=== PATIENT | male | born 1960 | race Two or more races ===

== ENCOUNTER 2023-10-01 19:46 | Observation (INO) | payer OTHER ==
[2023-10-01] MEDS ORDERED: ONDANSETRON 4 MG/2 ML VIAL ONE (20:46)
[2023-10-01 20:57] LABS: HEMATOCRIT 43.6 % (35.4-49); HEMOGLOBIN 14.5 G/dL (11.7-16.9); MCH 28.5 pg (25.7-33.7); MCHC 33.2 g/dl (32.0-35.9); MEAN CELL VOLUME 85.9 fl (80-96); MEAN PLT VOLUME 8.3 fl (7.5-11.1); PLATELET COUNT 185.1 10^3/uL (134-434); RBC 5.08 10^6/uL (4.00-5.60); WHITE BLOOD COUNT 10.1 10^3/uL (4.0-10.8)
[2023-10-01 21:03] LABS: INR 0.97 (0.83-1.09); PROTHROMBIN TIME (PATIENT) 11.2 SEC (9.7-13.0)
[2023-10-01] MEDS: SODIUM CHLORIDE 0.9% 500 ML INFUS.BAG IV ONE (21:04)
[2023-10-01] MEDS: ONDANSETRON 4 MG/2 ML VIAL IVPUSH ONE (21:04)
[2023-10-01 21:06] LABS: ACTIVATED PTT 28.5 SECONDS (25.2-36.5)
[2023-10-01 21:14] LABS: ALBUMIN 4.4 g/dl (3.4-5.0); ALK PHOS 112 U/L (45-117); ANION GAP 7 mmol/L (4-13); BILIRUBIN,TOTAL 0.5 mg/dl (0.2-1); CALCIUM 9.3 mg/dl (8.5-10.1); CHLORIDE 102 mmol/L (98-107); CO2 28 mmol/L (21-32); GLUCOSE,RANDOM 200 mg/dl (74-106); SGOT/AST 16 U/L (15-37); SGPT/ALT 25 U/L (7-52); SODIUM 137 mmol/L (136-145); TOT PROT 7.2 g/dl (6.4-8.2)
[2023-10-01 21:17] LABS: PLATELET ESTIMATE ADEQUATE
[2023-10-01 21:44] LABS: VENOUS BASE EXCESS 2.5 mmol/L (-2-2); VENOUS O2 SATURATION 41.5 % (70-80); VENOUS PCO2 60.7 mmHg (38-52); VENOUS PH 7.323 (7.310-7.410)
[2023-10-01 21:55] LABS: N-TERMINAL BNP 15.7 pg/ml (5-125)
[2023-10-01] MEDS ORDERED: ASPIRIN 325 MG TABLET ONE ×2 (22:42→22:47)
[2023-10-01] MEDS: ASPIRIN 325 MG TABLET PO ONE (22:48)
[2023-10-01] MEDS ORDERED: DOCUSATE SODIUM 100 MG CAPSULE (FP) PO PRN (23:24)
[2023-10-01] MEDS ORDERED: ACETAMINOPHEN 1000 MG/100 ML BAG IVPB PRN (23:28)
[2023-10-01] MEDS: ONDANSETRON 4 MG/2 ML VIAL IVPUSH PRN (23:46)
[2023-10-02] MEDS: DEXTROSE 5%-LACTATED RINGERS 1,000 ML IV SCH (01:20)
[2023-10-02] MEDS: DEXTROSE 5%-NORMAL SALINE 1,000 ML IV SCH (01:21)
[2023-10-02] MEDS ORDERED: ACETAMINOPHEN INJECTION 100 ML IVPB ONE (02:01)
[2023-10-02] MEDS: ACETAMINOPHEN 1000 MG/100 ML BAG IVPB ONE (02:02)
[2023-10-02 04:58] VITALS: BMI 29.5
[2023-10-02 09:08] LABS: CALCIUM 8.7 mg/dl (8.5-10.1); CREATININE 0.9 mg/dl (0.6-1.3); MAGNESIUM 1.8 mg/dL (1.8-2.4); PHOSPHOROUS 3.8 (2.5-4.9); POTASSIUM 3.7 mmol/L (3.5-5.1)
[2023-10-02 09:40] LABS: BASO % 0.5 % (0-2.0); EOS % 1.7 % (0-4.5); HEMATOCRIT 36.8 % (35.4-49); HEMOGLOBIN 12.5 GM/dL (11.7-16.9); LYMPH % 23.1 % (8-40); MCH 28.9 pg (25.7-33.7); MEAN CELL VOLUME 85.1 fl (80-96); MEAN PLT VOLUME 8.3 fl (7.5-11.1); MONO % 6.7 % (3.8-10.2); PLATELET COUNT 196 10^3/uL (134-434); RBC 4.33 M/mm3 (4.00-5.60); WHITE BLOOD COUNT 10.4 K/mm3 (4.0-10.0)
[2023-10-02] MEDS: ATORVASTATIN CA 40 MG TABLET (FP) PO SCH (21:39)
[2023-10-02 23:15] LABS: COCAINE, UR NEGATIVE (NEGATIVE); METHADONE, UR NEGATIVE (NEGATIVE); OPIATES, URI NEGATIVE (NEGATIVE); URINE BARBITURATES NEGATIVE (NEGATIVE)
[2023-10-02 23:18] LABS: PHENCYCLIDINE,URINE NEGATIVE (NEGATIVE); URINE AMPHETAMINES NEGATIVE (NEGATIVE); URINE BENZODIAZEPINES NEGATIVE (NEGATIVE)
[2023-10-02] MEDS ORDERED: ACETAMINOPHEN 325 MG TABLET (FP) PO PRN (23:24)
[2023-10-02 23:53] VITALS: RESP 18
[2023-10-03 08:47] LABS: HEMATOCRIT 38.1 % (35.4-49); HEMOGLOBIN 12.8 G/dL (11.7-16.9); MCH 29.4 pg (25.7-33.7); MCHC 33.5 g/dl (32.0-35.9); MEAN CELL VOLUME 87.7 fl (80-96); MEAN PLT VOLUME 8.8 fl (7.5-11.1); PLATELET COUNT 175.4 10^3/uL (134-434); RBC 4.35 10^6/uL (4.00-5.60); RDW 13.9 % (11.9-15.9)
[2023-10-03 09:10] LABS: CALCIUM 8.7 mg/dl (8.5-10.1); MAGNESIUM 1.9 mg/dL (1.8-2.4); PHOSPHOROUS 2.9 (2.5-4.9); POTASSIUM 4.2 mmol/L (3.5-5.1)
[2023-10-03] MEDS: MECLIZINE HCL 12.5 MG TABLET PO PRN (09:49)
[2023-10-03] MEDS: ASPIRIN 81 MG CHEWABLE TABLETS PO SCH (09:49)
[2023-10-03] MEDS: CYANOCOBALAMIN (VITAMIN B-12) 100 MCG TABLET PO SCH (09:50)
[2023-10-03 09:54] VITALS: BP 123/75; PULSE 63; TEMP 98.1
[2023-10-04] MEDS ORDERED: CYANOCOBALAMIN (VITAMIN B-12) 100 MCG TABLET PO SCH (10:00)
== END 2023-10-03 13:36 | disposition home or self-care (01) ==
LOC: EDSEX → FER 19:46 → FM/S 10-02 04:26
PROVIDERS: ADMIT Internal Medicine; ATTEND Nurse Practitioner Family
PROC: 3E033NZ Introduction of Analgesics, Hypnotics, Sedatives into Peripheral Vein, Percutaneous Approach (ICD-10-PCS; principal; 2023-10-02)
PROC: 3E0337Z Introduction of Electrolytic and Water Balance Substance into Peripheral Vein, Percutaneous Approach (ICD-10-PCS; 2023-10-02)
PROC: 3E033GC Introduction of Other Therapeutic Substance into Peripheral Vein, Percutaneous Approach (ICD-10-PCS; 2023-10-02)
DX: R42 Dizziness and giddiness (principal); J45.909 Unspecified asthma, uncomplicated; R53.1 Weakness; R11.2 Nausea with vomiting, unspecified; E78.00 Pure hypercholesterolemia, unspecified; R26.89 Other abnormalities of gait and mobility; M54.9 Dorsalgia, unspecified
CPT/HCPCS: 0241U-QW; 36415; 70450-TC; 70496-TC; 70498-TC; 71045-TC-FY; 80048; 80053; 80061; 80307; 82607; 82746; 82803; 82962; 83036; 83605; 83690; 83735; 83880; 84100; 84439; 84443; 84484; 85025; 85027; 85610; 85730; 93005; 96361; 96374; 96375; 96376; 97116-GP; 97162-GP; 99285-25; G0378; J0131; Q9967

== ENCOUNTER 2024-05-21 18:09 | Emergency (ER) | payer OTHER ==
[2024-05-21 18:38] VITALS: BP 120/81; PULSE 61; RESP 16; TEMP 97.6; BMI 28.4
[2024-05-21] MEDS ORDERED: ALBUTEROL SO4 2.5/IPRATROPIUM 0.5 INH SOL 3 ML VIAL.NEB. NEB ONE (20:24)
[2024-05-21] MEDS ORDERED: ACETAMINOPHEN 325 MG TABLET (FP) ONE (20:25)
[2024-05-21] MEDS ORDERED: DEXAMETHASONE SOD PHOSPHATE 10 MG/1 ML VIAL ONE (20:25)
[2024-05-21] MEDS ORDERED: MECLIZINE HCL 25 MG TABLET (FP) ONE (20:25)
[2024-05-21] MEDS ORDERED: METHOCARBAMOL 500 MG TABLET ONE (20:25)
[2024-05-21] MEDS ORDERED: ONDANSETRON 4 MG/2 ML VIAL ONE (20:26)
[2024-05-21] MEDS ORDERED: LIDOCAINE 4% PATCH TP ONE (20:26)
[2024-05-21] MEDS: SODIUM CHLORIDE 0.9% 1000 ML INFUS.BAG IV ONE (20:50)
[2024-05-21] MEDS: LIDOCAINE 4% PATCH TP ONE (20:50)
[2024-05-21] MEDS: ONDANSETRON 4 MG/2 ML VIAL IVPUSH ONE (20:50)
[2024-05-21] MEDS: MECLIZINE HCL 25 MG TABLET (FP) PO ONE (20:50)
[2024-05-21] MEDS: ACETAMINOPHEN 325 MG TABLET (FP) PO ONE (20:51)
[2024-05-21] MEDS: ALBUTEROL SO4 2.5/IPRATROPIUM 0.5 INH SOL 3 ML VIAL.NEB. NEB SCH (20:51)
[2024-05-21] MEDS: DEXAMETHASONE SOD PHOSPHATE 10 MG/1 ML VIAL IVPUSH ONE (20:51)
[2024-05-21] MEDS: METHOCARBAMOL 500 MG TABLET PO ONE (20:51)
[2024-05-21 20:58] LABS: BASO % 0.5 % (0-2.0); EOS % 1.5 % (0-4.5); LYMPH % 12.2 % (8-40); MCHC 33.4 g/dl (32.0-35.9); MEAN CELL VOLUME 83.8 fl (80-96); MEAN PLT VOLUME 7.9 fl (7.5-11.1); MONO % 4.4 % (3.8-10.2); NEUT % 81.4 % (42.8-82.8); PLATELET COUNT 228 10^3/uL (134-434); RBC 5.01 M/mm3 (4.00-5.60); RDW 13.4 % (11.9-15.9); WHITE BLOOD COUNT 10.4 K/mm3 (4.0-10.0)
[2024-05-21 21:56] LABS: POTASSIUM 4.4 mmol/L (3.5-5.1)
[2024-05-21 22:00] LABS: ALBUMIN 3.7 g/dl (3.4-5.0); BLOOD UREA NITROGEN 24.1 mg/dL (7-18); MAGNESIUM 2.3 mg/dL (1.8-2.4)
[2024-05-21 22:03] LABS: CREATININE 1.1 mg/dL (0.55-1.3)
[2024-05-21 22:05] LABS: BILIRUBIN,TOTAL 0.6 mg/dL (0.2-1); TOT PROT 7.4 g/dl (6.4-8.2)
[2024-05-22] MEDS: KETOROLAC TROMETHAMINE 15 MG/ML VIAL IVPUSH ONE (00:46)
[2024-05-22] MEDS ORDERED: KETOROLAC TROMETHAMINE 15 MG/ML VIAL ONE (00:47)
== END 2024-05-22 01:39 | disposition home or self-care (01) ==
LOC: JER 18:09
PROC: 3E033GC Introduction of Other Therapeutic Substance into Peripheral Vein, Percutaneous Approach (ICD-10-PCS; principal; 2024-05-21)
PROC: 3E033GC Introduction of Other Therapeutic Substance into Peripheral Vein, Percutaneous Approach (ICD-10-PCS; 2024-05-21)
PROC: 3E0F7GC Introduction of Other Therapeutic Substance into Respiratory Tract, Via Natural or Artificial Opening (ICD-10-PCS; 2024-05-21)
PROC: 3E0333Z Introduction of Anti-inflammatory into Peripheral Vein, Percutaneous Approach (ICD-10-PCS; 2024-05-22)
DX: R42 Dizziness and giddiness (principal); M54.50 Low back pain, unspecified; R11.2 Nausea with vomiting, unspecified; R06.02 Shortness of breath; M79.10 Myalgia, unspecified site; Z20.822 Contact with and (suspected) exposure to COVID-19
CPT/HCPCS: 0241U-QW; 36415; 70450-TC; 80053; 83735; 84484; 85025; 93005; 93010; 99285-25; J1100